=== PATIENT | female | born 1995 | race Caucasian/White ===

== ENCOUNTER 2023-12-01 03:38 | Outpatient (CLI) | payer OTHER, SELFPAY ==
[2023-12-01 03:59] VITALS: BMI 39.9
[2023-12-01 04:05] VITALS: BP 126/81; PULSE 94; RESP 16; TEMP 36.7; O2SAT 98; O2SAT 99
--- NOTE | 2024-02-17 13:30 | OB.TRI.NOTE ---
HPI - General General Date of Service: 12/01/23 HPI Narrative ABRIL ANGLIN, is a 28 F who presents with contractions. Maternal Data Information Final ANDERSON: 12/05/23 Gestational age: 39&3 PFSH PFSH Medical History Anxiety Depression Home Medications ?Medication ?Instructions ?Recorded ?Last Taken ?Type vit no.95-ferrous 1 tab PO DAILY 12/01/23 12/01/23 22:45 History fumarate 28 mg-folic acid 800 mcg 1 TAB tablet () acetaminophen 500 mg tablet 1,000 mg (2 x 500 mg) PO Q6H PRN 12/04/23 Unknown Rx PRN Pain 1-10 Or Fever #0 tabs ibuprofen 600 mg tablet 600 mg PO Q6H PRN PRN Pain Score 12/04/23 Unknown Rx 1-10 #0 tabs dicloxacillin 500 mg capsule 500 mg PO Q6H #40 caps 12/31/23 Unknown Rx Allergy/AdvReac Type Severity Reaction Status Date / Time No Known Allergies Allergy Verified 12/02/23 08:55 Surgical History History of surgery Social History Smoking Status: Never smoker History Elective abortions Hx Para 0 Spontaneous abortions Hx # Term Pregnancies Ectopic pregnancies Hx # Pregnancies Multiple births # of living children Assessment & Plan (1) False labor: PLAN: NST for false labor
== END 2023-12-01 05:50 | disposition home or self-care (01) ==
LOC: WPOUT 03:54 → WP 03:55
PROVIDERS: Visit Provider Obstetrics & Gynecology
DX: O47.1 False labor at or after 37 completed weeks of gestation (principal); Z3A.39 39 weeks gestation of pregnancy
CPT/HCPCS: 59025; 59050; 99221; G0378

== ENCOUNTER 2023-12-02 08:57 | Inpatient (IN) | payer OTHER, SELFPAY ==
[2023-12-02] VITALS (101 sets, daily range): BP systolic 104–143; BP diastolic 52–117; PULSE 86–125; RESP 16–18; TEMP 36.1–36.8; O2SAT 97–100; BMI 39.8
[2023-12-02] MEDS: Lactated Ringers 1,000 ML 999 ML IV (09:05)
[2023-12-02 09:49] LABS: Absolute Lymphocyte Count 2.56 X10^3/uL (0.83-4.51); Absolute Neutrophil Count 9.1 X10^3/uL (2.0-7.7); Basophil# 0.05 X10^3/uL; Basophil% 0.4 % (0-1); Eosinophil# 0.06 X10^3/uL; Eosinophils% 0.5 % (0-5); Hematocrit 34.4 % (37-47); Hemoglobin 11.4 g/dL (12.0-15.0); Lymphocyte # 2.56 X10^3/ul (0.83-4.51); Lymphocyte % 20.1 % (19-41); Mean Corp Hgb Conc 33.1 g/dL (32-36); Mean Corpuscular Volume 84.5 fL (81-99); Mean Platelet Vol. 9.4 fl (6.2-12.0); Monocyte% 6.3 % (0-10); NRBC Flagged by Analyzer 0 % (0-5); Neutrophil # 9.13 X10^3/uL (2.7-7.7); Neutrophil % 71.8 % (47-70); Platelet Count 214 K/mm3 (150-450); RBC Distribution Width CV 14.4 % (11.6-14.6); Red Blood Count 4.07 M/mm3 (4.2-5.4); White Blood Count 12.7 K/mm3 (4.4-11.0)
[2023-12-02 10:14] LABS: Protein, Urine (Random) 29.2 mg/dL (<11.9); Protein:Creat Ratio 278 mg/g CRE (0-200)
[2023-12-02] MEDS: LACTATED RINGERS 500 ML 999 ML IV ×2 (10:16→20:16)
[2023-12-02 10:37] LABS: AST(SGOT) 18 U/L (15-37); Alanine Aminotransfer ALT/SGPT 15 U/L (13-56); Creatinine, Serum 0.71 mg/dL (0.55-1.02); EST Glomerular Filtration Rate 105 mL/min (>60); Est Glom Filt Rate - Afr Amer 127 mL/min (>60); Uric Acid 5.5 mg/dL (2.6-6.0)
[2023-12-02 10:55] LABS: Syphilis Antibodies Non-reactive
[2023-12-02] MEDS: fentaNYL-bupivacaine (epidural) 100 ML BAG EPIDURAL ×3 (11:11→20:20)
--- NOTE | 2023-12-02 12:13 | PCM.HP.OB ---
HPI - General General Date of Admission: 12/02/23 Date of Service: 12/02/23 HPI Narrative ABRIL ANGLIN, is a 28 F who presents with ctxs. Maternal Data Information Final ANDERSON: 12/05/23 Gestational age: 39&4 PFSH PFSH Medical History Anxiety Depression Home Medications vit no.95-ferrous fumarate 28 mg-folic acid 800 mcg tablet () 1 tab PO DAILY 12/01/23 [History Last Taken 11/30/23 21:00] Allergy/AdvReac Type Severity Reaction Status Date / Time No Known Allergies Allergy Verified 12/02/23 08:55 Surgical History History of surgery Social History Smoking Status: Never smoker History Elective abortions Hx Para 0 Spontaneous abortions Hx # Term Pregnancies Ectopic pregnancies Hx # Pregnancies Multiple births # of living children NST FHR Rate Baby A Baseline: 150 Variability:: Moderate Accelerations:: 15 x 15 Decelerations:: Prolonged (resolved with position changes & other maneuvers by RN prior to my arrival on unit) Uterine Activity:: not tracing well Vital Signs Vital Signs Vital Signs: 12/02/23 08:38 12/02/23 08:38 12/02/23 08:37 Temperature Temperature Source Pulse Rate 94 96 Respiratory Rate Blood Pressure 139/96 H BP Systolic 139 BP Diastolic 96 Pulse Ox 12/02/23 08:37 12/02/23 08:43 12/02/23 08:43 Temperature Temperature Source Temporal Pulse Rate Respiratory Rate 18 Blood Pressure BP Systolic BP Diastolic Pulse Ox 98 12/02/23 08:43 12/02/23 08:43 12/02/23 10:58 Temperature 98.0 F Temperature Source Pulse Rate 92 Respiratory Rate Blood Pressure BP Systolic BP Diastolic Pulse Ox 98 12/02/23 10:58 12/02/23 11:00 12/02/23 11:00 Temperature Temperature Source Pulse Rate 97 Respiratory Rate Blood Pressure 132/82 H BP Systolic 132 BP Diastolic 82 Pulse Ox 100 12/02/23 11:05 12/02/23 11:05 12/02/23 11:04 Temperature Temperature Source Pulse Rate 90 97 Respiratory Rate Blood Pressure 135/74 H BP Systolic 135 BP Diastolic 74 Pulse Ox 12/02/23 11:04 12/02/23 11:09 12/02/23 11:09 Temperature Temperature Source Pulse Rate 97 Respiratory Rate Blood Pressure BP Systolic BP Diastolic Pulse Ox 100 100 12/02/23 11:11 12/02/23 11:11 12/02/23 11:14 Temperature Temperature Source Pulse Rate 86 90 Respiratory Rate Blood Pressure 116/65 BP Systolic 116 BP Diastolic 65 Pulse Ox 12/02/23 11:14 12/02/23 11:19 12/02/23 11:19 Temperature Temperature Source Pulse Rate 97 Respiratory Rate Blood Pressure BP Systolic BP Diastolic Pulse Ox 100 100 12/02/23 11:20 12/02/23 11:20 12/02/23 11:20 Temperature Temperature Source Pulse Rate 98 Respiratory Rate 16 Blood Pressure 116/69 BP Systolic 116 BP Diastolic 69 Pulse Ox 12/02/23 11:15 12/02/23 11:20 12/02/23 11:10 Temperature 98.1 F Temperature Source Pulse Rate Respiratory Rate 16 16 Blood Pressure BP Systolic BP Diastolic Pulse Ox 12/02/23 11:24 12/02/23 11:24 12/02/23 11:25 Temperature Temperature Source Pulse Rate 103 H Respiratory Rate Blood Pressure 118/54 L BP Systolic 118 BP Diastolic 54 Pulse Ox 100 12/02/23 11:25 12/02/23 11:30 12/02/23 11:30 Temperature Temperature Source Pulse Rate 95 97 Respiratory Rate Blood Pressure 120/57 L BP Systolic 120 BP Diastolic 57 Pulse Ox 12/02/23 11:29 12/02/23 11:25 12/02/23 11:29 Temperature Temperature Source Pulse Rate 103 H Respiratory Rate 16 Blood Pressure BP Systolic BP Diastolic Pulse Ox 99 12/02/23 11:30 12/02/23 11:35 12/02/23 11:35 Temperature Temperature Source Pulse Rate 101 H Respiratory Rate 16 Blood Pressure 109/61 BP Systolic 109 BP Diastolic 61 Pulse Ox 12/02/23 11:34 12/02/23 11:34 12/02/23 11:34 Temperature Temperature Source Pulse Rate 103 H Respiratory Rate 16 Blood Pressure BP Systolic BP Diastolic Pulse Ox 99 12/02/23 11:59 12/02/23 11:59 12/02/23 12:01 Temperature Temperature Source Temporal Pulse Rate 114 H Respiratory Rate Blood Pressure BP Systolic BP Diastolic Pulse Ox 98 12/02/23 12:01 12/02/23 12:01 12/02/23 12:04 Temperature 97.5 F L Temperature Source Pulse Rate 98 Respiratory Rate 16 Blood Pressure BP Systolic BP Diastolic Pulse Ox 12/02/23 12:04 Temperature Temperature Source Pulse Rate Respiratory Rate Blood Pressure BP Systolic BP Diastolic Pulse Ox 97 Weight Weight: 239 lb 3.225 oz Body Mass Index (BMI) 39.8 Physical Exam Const alert, oriented x3 and no apparent distress Chest inspection of chest normal GI soft to palpation, non-tender and non-distended Inspection: gravid external exam normal Narrative: cvx - 6/80/0, AROM clear fluid Labs Labs Labs: Blood Type AB POSITIVE Antibody Screen NEGATIVE Hct 34.4 % (37-47) L Hgb 11.4 g/dL (12.0-15.0) L Syphilis Total Ab Non-reactive Assessment & Plan (1) with 39 completed weeks gestation: COMMENT: @ 39&4 PLAN: Plan Admit to L&D Expectant management FWB - reassuring EFW at this time s/p prolonged deceleration GBS negative Pain - comfortable with epidural GBS negative EFW - less than 4500g, patient with adequate pelvis
[2023-12-02] MEDS: Lactated Ringers 1,000 ML 200 ML IV ×2 (12:52→17:50)
[2023-12-02] MEDS: Oxytocin 15 Units/NS 250ml 15 UNITS/250 ML IV.SOLN 2 UNITS IV (17:05)
--- NOTE | 2023-12-02 21:35 | EX.PCM.OBRPT ---
Maternal Data Information Final ANDERSON: 12/05/23 Gestational age: 39&4 Vaginal Delivery Maternal Presentation Maternal Presentation: Active Labor Operative Information Date of Procedure: 12/02/23 Pre-Operative Diagnosis: Labor Post-Operative Diagnosis: Labor Surgery / Procedure Performed: Spontaneous Vaginal Delivery Type of Anesthesia: Epidural Estimated Blood Loss: 300ml Findings Description of Procedure: Patient prepped & draped when C/C/+2. She pushed well to deliver the head. head gently guided to allow delivery of anterior and posterior shoulders. No excess traction placed on head. Body delivered and 3VC clamped & cut in delayed fashion. Placenta delivered with gentle traction and good uterine tone obtained. Presentation: ELIZABETH Amniotic Membrane Rupture Type: Artificial Amniotic Fluid Description: Clear Placental Delivery Description: Expressed Placenta Disposition: [facility] Specimen(s) Removed: Placenta Cord Vessel Description: 3 Vessels Cord Entanglement: None Infant A Gender: Female ([place]) (1 minute): 9 (5 minute): 9 Delayed Cord Clamping: Yes Post Vaginal Delivery Medications Given After Delivery: IV Pitocin Episiotomy Description: None Laceration: 2nd degree (perineal - repaired with 3-0 vicryl) Complication Complications: None
[2023-12-02] MEDS: Oxytocin 15 Units/NS 250ml 15 UNITS/250 ML IV.SOLN 83 UNITS IV (21:42)
[2023-12-03] MEDS: 0.9% Saline Lock 10 ML Syringe IV (00:45)
[2023-12-03] MEDS: Acetaminophen 500 MG Tablet 1000 MG PO ×2 (03:43→20:17)
[2023-12-03 03:50] VITALS: BP 129/84; PULSE 96; RESP 16; TEMP 36.6
[2023-12-03 07:47] VITALS: BP 131/92; PULSE 97; RESP 17; TEMP 36.8; O2SAT 100
[2023-12-03] MEDS: Ibuprofen 600 MG Tablet PO ×3 (07:53→20:17)
--- NOTE | 2023-12-03 08:42 | PCM.PN.CNM ---
Subjective Subjective Patient seen at bedside. Ambulating and voiding without difficulty. Pumping and feeding via syringe. Currently supplementing with donor milk. Denies pain. Lochia decreasing. Objective Data Objective Data Vital Signs: Vital Signs Temp Pulse Resp BP Pulse Ox O2 Del Method 98.2 F 97 17 131/92 H 100 Room Air 12/03/23 07:47 12/03/23 07:47 12/03/23 07:47 12/03/23 07:47 12/03/23 07:47 12/03/23 07:47 Oxygen Delivery Method Room Air Weight: 239 lb 3.225 oz Body Mass Index (BMI) 39.8 Intake & Output: Intake and Output for Last 24 Hours 12/01/23 12/02/23 12/03/23 23:59 23:59 23:59 Intake Total 4031.89 / 4031.89 250 / 250 Output Total 900 / 900 700 / 700 Balance 3131.89 / 3131.89 -450 / -450 Lab / Micro Data 12/02/23 09:30 12/02/23 09:30 Labs: Laboratory Results - last 24 hr 12/02/23 09:30: WBC 12.7 H, RBC 4.07 L, Hgb 11.4 L, Hct 34.4 L, MCV 84.5, MCH 28.0, MCHC 33.1, RDW Std Deviation 44.0 H, RDW Coeff of Yin 14.4, Plt Count 214, MPV 9.4, Immature Gran % (Auto) 0.900, Neut % (Auto) 71.8 H, Lymph % (Auto) 20.1, [place] % (Auto) 6.3, Eos % (Auto) 0.5, Baso % (Auto) 0.4, Absolute Neuts (auto) 9.1 H, Absolute Lymphs (auto) 2.56, Nucleated RBC % 0, Creatinine 0.71, Estim Creat Clear Calc 145.80, Est GFR (MDRD) Af Amer 127, Est GFR (MDRD) Non-Af 105, Uric Acid 5.5, AST 18, ALT 15, U Random Total Protein 29.2 H, Urine Creatinine 105.00, Protein/Creatinin Ratio 278 H, Syphilis Total Ab Non-reactive, Blood Type AB POSITIVE, Antibody Screen NEGATIVE ROS Eyes Eyes: Denies blurry vision, change in vision or spots in vision ENT HEENT: Denies dizziness or headache(s) Cardiovascular Cardiovascular: Denies abdominal pain, chest pain or dyspnea Respiratory/Chest Respiratory/Chest: Denies cough, dyspnea, shortness of breath at rest or shortness of breath with exertion Gastrointestinal Gastrointestinal: Denies abdominal pain, diarrhea or vomiting Genitourinary Genitourinary: Denies change in urinary stream, difficulty urinating or dysuria Musculoskeletal Musculoskeletal: Reports none Integumentary Integumentary: Denies rash Neurologic Neurologic: Denies dizziness, headache(s), memory loss or weakness Assessment & Plan (1) (spontaneous vaginal delivery): (2) Care and examination of lactating mother: PLAN: Plan PPD 1 Routine care support Pain control Anticipate discharge home tomorrow
[2023-12-03 12:07] VITALS: BP 128/84; PULSE 94; RESP 16; TEMP 36.8; O2SAT 98
[2023-12-03 12:51] VITALS: BP 110/65; PULSE 88; RESP 16; O2SAT 99
[2023-12-03 15:00] VITALS: BP 118/80; PULSE 98; RESP 16; TEMP 36.8; O2SAT 99
[2023-12-03 20:12] VITALS: BP 123/82; PULSE 92; RESP 16; TEMP 36.8; O2SAT 100
[2023-12-04 01:31] VITALS: BP 112/78; PULSE 82; RESP 16; O2SAT 100
[2023-12-04 07:38] VITALS: BP 119/84; PULSE 83; RESP 16; TEMP 36.3
--- NOTE | 2023-12-04 07:42 | PCM.DC.SUM ---
Providers Date of Admission: 12/02/23 Primary Care Physician: No Primary Care Phys Reason For Visit: VAG Diagnosis Discharge Diagnosis (1) (spontaneous vaginal delivery): Status: Acute Code(s): O80 - Encounter for full-term uncomplicated delivery (2) Care and examination of lactating mother: Status: Acute Code(s): Z39.1 - Encounter for care and examination of lactating mother Plan PPD 2 Routine care support Pain control Discharge home with follow up in office Medications at Discharge Home Medications vit no.95-ferrous fumarate 28 mg-folic acid 800 mcg tablet () 1 tab PO DAILY 12/01/23 acetaminophen 500 mg tablet 1,000 mg (2 x 500 mg) PO Q6H PRN PRN Pain 1-10 Or Fever #0 tabs 12/04/23 ibuprofen 600 mg tablet 600 mg PO Q6H PRN PRN Pain Score 1-10 #0 tabs 12/04/23 Hospital Course Operations None Procedures None Summary of Care Provided Minutes Spent on Discharge: 15 Hospital Course: Patient had . Hospital course was uneventful. Physical Exam Const alert and no apparent distress General Appearance: cooperative and comfortable Exam Limitations: no limitations HEENT normocephalic Eyes General Eye: normal appearance of both eyes Neck full ROM General: normal visual inspection Chest Chest: symmetrical chest wall rise Resp normal respiratory effort and normal air movement Effort and Inspection: symmetric chest movement Auscultation: clear to auscultation bilaterally Cardio regular rate and regular rhythm GI normal to inspection, nondistended, normoactive bowel sounds Back/Spine normal ROM Extremity full ROM and no calf tenderness General Extremity: normal exam except as noted Skin no rashes or lesions noted Neuro CN's II-XII intact bilaterally Psych mental status grossly normal Weight / BMI Weight Weight: 239 lb 3.225 oz Body Mass Index (BMI) 39.8 ABG / Lab / Microbiology Data 12/02/23 09:30 12/02/23 09:30 D/C Instructions Discharge Diet: No restrictions May resume sexual activity in: 6-8 weeks Weight Bearing Status: Weight bearing as tolerated Call your doctor if you observe: Fever of 101 or Higher, Inability to urinate, Using more than 1 pad per hour, Shortness of breath, Chest pain, Calf discomfort and Uncontrolled pain Please Follow Up With: Helen Montoya CNM When: 2 weeks virtual visit/ 6 weeks in office Meaningful Use Info Meaningful Use Meaningful Use Diagnoses (Choose all that apply): None applicable Ischemic Stroke Statin Dosing Therapy Reference: STATIN DOSE THERAPY REFERENCE: * Patients > 75 years receive moderate or high dose statin therapy. * Patients 75 years or YOUNGER should receive HIGH intensity statin dose unless contraindicated. You will be required to document reason for non-treatment if statin daily dose does not meet guidelines. HIGH DOSE STATIN THERAPY DAILY Atorvastatin > than or = to 40 mg Rosuvastatin > than or = to 20 mg Amlodipine + Atorvastatin > than or = to 2.5/40 mg Ezetimibe + Simvastatin 10/80 mg Simvastatin 80mg Discharge Plan Admission Admit Date/Time: 12/02/23 08:57 Primary Reason for Your Visit: Labor and Delivery Attending Provider: Margarette Duval Primary Care Provider: Care Physician,No Primary Discharge Orders/Prescriptions Prescriptions: New acetaminophen 500 mg Tablet 1,000 mg PO Q6H PRN PRN (Reason: Pain 1-10 Or Fever) Qty: 0 0RF ibuprofen 600 mg Tablet 600 mg PO Q6H PRN PRN (Reason: Pain Score 1-10) Qty: 0 0RF Continued PNV cmb#95-ferrous fumarate-FA [] 28 mg iron- 800 mcg tablet 1 tab PO DAILY Referrals / Follow Up: Helen Motnoya CNM [Med Staff - Adv Practice Prof] - Care Physician,No Primary [Primary Care Provider] - Disposition Disposition (needs filled in before D/C Order can be placed): Home, Self Care
== END 2023-12-04 09:45 | disposition home or self-care (01) | DRG 807 ==
LOC: WPOUT 11:37 → WP 11:37
PROVIDERS: Admitting Provider Obstetrics & Gynecology; Referring Provider Obstetrics & Gynecology; Visit Provider Obstetrics & Gynecology
DX: O70.1 Second degree perineal laceration during delivery (principal); Z37.0 Single live birth; Z3A.39 39 weeks gestation of pregnancy
CPT/HCPCS: 59025; 59050; 82565; 82570; 84156; 84450; 84460; 84550; 85025; 86780; 86850; 86900; 86901; 99221; J7120; A4216; G0378